=== PATIENT | male | born 1980 | race Caucasian/White ===

== ENCOUNTER 2020-12-09 08:01 | Emergency (ER) | payer OTHER ==
[2020-12-09] MEDS ORDERED: CYCLOBENZAPRINE10 MG PO (08:51)
[2020-12-09] MEDS ORDERED: NAPROXEN500 MG PO (08:51)
== END 2020-12-09 09:09 | disposition home or self-care (01) ==
LOC: FER 08:01
DX: S39.012A Strain of muscle, fascia and tendon of lower back, initial encounter (principal); X58.XXXA Exposure to other specified factors, initial encounter; Y92.009 Unspecified place in unspecified non-institutional (private) residence as the place of occurrence of the external cause
CPT/HCPCS: 72110; J1885